=== PATIENT | female | born 1970 | race African-American/Black ===

== ENCOUNTER → 2016-09-02 | Outpatient (CLI) | payer OTHER ==
[~2016-09-02] MED LIST: CYCL1PAK PO; HYDR-3533 PO; NAPR-576 PO; NAPR500 PO
--- NOTE | 2016-09-02 11:52 | RADRPT ---
EXAM DATE/TIME: 09/02/2016 11:20 [facility] COMPARISON: No previous studies available for comparison. INDICATIONS : Left shoulder pain with no known injury, shoulder locking up. MEDICAL HISTORY : None. SURGICAL HISTORY : None. ENCOUNTER: Initial ACUITY: 1 month PAIN SCORE: 2/10 LOCATION: Left shoulder. FINDINGS: No definite fractures, or dislocations are identified. No definite lytic or sclerotic lesion is seen . The joint space is well maintained. IMPRESSION: Unremarkable study. KVidya Montoya MD on September 02, 2016 at 11:49 Board Certified Radiologist. This report was verified electronically.
== END ==
LOC: HRAD 11:03
PROVIDERS: ATTEND General Practice
DX: M25.512 Pain in left shoulder (principal)
CPT/HCPCS: 73030

== ENCOUNTER → 2016-09-22 | Outpatient (CLI) | payer OTHER ==
--- NOTE | 2016-09-22 09:35 | RADRPT ---
EXAM DATE/TIME: 09/22/2016 09:09 [facility] COMPARISON: No previous studies available for comparison. INDICATIONS : Bilateral hip pain for 2 months; no known injury. MEDICAL HISTORY : None. SURGICAL HISTORY : None. ENCOUNTER: Initial ACUITY: 2 months PAIN SCORE: 9/10 LOCATION: Bilateral hip FINDINGS: AP and lateral views of both hips were performed. The primary and secondary trabecular pattern of th e femoral necks is intact. The hip joints are of normal width without significant sclerosis or bony hypertrophy. The bony pelvic ring is grossly intact. CONCLUSION: Unremarkable examination of the hips and pelvis. Jak Atkins MD on September 22, 2016 at 9:33 Board Certified Radiologist. This report was verified electronically.
== END ==
LOC: HRAD 08:53
PROVIDERS: ATTEND General Practice
DX: M25.551 Pain in right hip (principal); M25.552 Pain in left hip
CPT/HCPCS: 73521